=== PATIENT | female | born 1985 | race Caucasian/White ===

== ENCOUNTER 2017-12-04 15:30 | Emergency (ER) | payer OTHER ==
[~2017-12-04] VITALS: Ht 172.7 cm; Wt 62.6 kg
[~2017-12-04 15:30] MED LIST: ATIVAN0.5 MG PO; CEPHALEXIN500 M1 PO; CITALOPRAM HYDR20 MG PO; KENALOG0.1% TP; LYRICA100 M1 PO; MEDROL DOSEPAK4 MG PO; PREDNICOT20 MG PO; SILVADENE1% TP; VISTARIL25 M1 PO; ZOVIRAX800 MG PO
[2017-12-04] MEDS ORDERED: Zofran4 MG SL (18:02)
== END 2017-12-04 17:57 | disposition home or self-care (01) ==
LOC: ED 15:30
DX: A08.4 Viral intestinal infection, unspecified (principal); Z79.899 Other long term (current) drug therapy; Z87.01 Personal history of pneumonia (recurrent)

== ENCOUNTER 2018-08-26 20:08 | Emergency (ER) | payer OTHER ==
[~2018-08-26] VITALS: Ht 170.1 cm; Wt 64.4 kg
[~2018-08-26 20:08] MED LIST changes: +DIFLUCAN150 MG PO; +ZITHROMAX250 MG PO; +Zofran4 MG SL
[2018-08-26] MEDS ORDERED: TOPIRAMATE50 M2 PO (20:25)
[2018-08-26] MEDS ORDERED: MIRALAX POWDER17 G1 PO (21:36)
== END 2018-08-26 22:11 | disposition home or self-care (01) ==
LOC: ED 20:08
DX: K59.00 Constipation, unspecified (principal); F17.200 Nicotine dependence, unspecified, uncomplicated; Z90.49 Acquired absence of other specified parts of digestive tract; Z79.899 Other long term (current) drug therapy

== ENCOUNTER 2019-02-04 19:00 | Emergency (ER) | payer SELFPAY ==
[~2019-02-04] VITALS: Ht 170.1 cm; Wt 64.0 kg
[~2019-02-04 19:00] MED LIST changes: +CITALOPRAM10 MG PO; +MIRALAX POWDER17 G1 PO; +TOPIRAMATE50 M2 PO
[2019-02-04] MEDS ORDERED: LIDEX 0.05% CRE15 GM T (19:09)
== END 2019-02-04 19:27 | disposition home or self-care (01) ==
LOC: ED 19:00
DX: L30.9 Dermatitis, unspecified (principal); Z79.899 Other long term (current) drug therapy

== ENCOUNTER 2019-08-14 11:41 | Emergency (ER) | payer OTHER ==
[~2019-08-14] VITALS: Ht 172.7 cm; Wt 67.1 kg
[~2019-08-14 11:41] MED LIST changes: +LIDEX 0.05% CRE15 GM T
[2019-08-14] MEDS ORDERED: ACYCLOVIR800 MG PO (12:20)
[2019-08-14] MEDS ORDERED: NEURONTIN100 MG PO (12:21)
== END 2019-08-14 12:21 | disposition home or self-care (01) ==
LOC: ED 11:41
DX: B02.9 Zoster without complications (principal); F17.200 Nicotine dependence, unspecified, uncomplicated; Z79.899 Other long term (current) drug therapy

== ENCOUNTER 2019-10-14 08:48 | Emergency (ER) | payer OTHER ==
[~2019-10-14] VITALS: Ht 172.7 cm; Wt 63.5 kg
[~2019-10-14 08:48] MED LIST changes: +ACYCLOVIR800 MG PO; +NEURONTIN100 MG PO
[2019-10-14] MEDS ORDERED: DOXYCYCLINE100 M3 PO (10:35)
[2019-10-14] MEDS ORDERED: TESSALON PERLE100 M1 PO (10:35)
== END 2019-10-14 10:36 | disposition home or self-care (01) ==
LOC: ED 08:48
DX: J18.9 Pneumonia, unspecified organism (principal); F17.200 Nicotine dependence, unspecified, uncomplicated; Z79.899 Other long term (current) drug therapy

== ENCOUNTER 2020-02-17 21:02 | Emergency (ER) | payer OTHER ==
[~2020-02-17 21:02] MED LIST changes: +DOXYCYCLINE100 M3 PO; +TESSALON PERLE100 M1 PO
[2020-02-17 21:39] LABS: BASO # 0.1 10*3/uL (0.0-0.1); BASO % 0.5 % (0.0-1.0); EOS # 0.1 10*3/uL (0.0-0.4); EOS % 0.4 % (1.0-4.0); HEMATOCRIT 41.6 % (37.0-47.0); LYMPH # 3.1 10*3/uL (1.3-4.4); LYMPH % 26.3 % (27.0-41.0); MEAN CELL VOLUME 87.9 fl (81.0-99.0); MEAN CORPUSCULAR HGB 27.9 pg (27.0-31.0); MEAN CORPUSCULAR HGB CONC 31.7 g/dl (33.0-37.0); MEAN PLATELET VOLUME 10.2 fl (9.6-12.3); MONO # 0.7 10*3/uL (0.1-1.0); MONO % 6.2 % (3.0-9.0); NEUT # 7.7 10*3/uL (2.3-7.9); NEUT % 66.1 % (47.0-73.0); PLATELET COUNT AUTOMATED 252 10*3/uL (130-400); RED BLOOD COUNT 4.73 10*6/uL (4.10-5.10); RED CELL DISTRI WIDTH 13.2 % (0-14.5); WHITE BLOOD COUNT 11.7 10*3/uL (4.8-10.8)
[2020-02-17 21:57] LABS: ALBUMIN 3.7 gm/dl (3.1-4.5); ALKALINE PHOSPHATASE 63 U/L (45-117); BUN 7 mg/dl (7-24); CHLORIDE 108 mmol/L (98-107); CREATININE 1.01 mg/dL (0.55-1.02); POTASSIUM 3.3 mmol/L (3.5-5.1); SGOT/AST 12 IU/L (3-35); SGPT/ALT 16 U/L (12-78); SODIUM 139 mmol/L (136-145); TOTAL PROTEIN 8.1 gm/dL (6.4-8.2)
[2020-02-17] MEDS ORDERED: Motrin,Rufen800 MG PO (23:23)
== END 2020-02-17 23:35 | disposition home or self-care (01) ==
LOC: ED 21:02
PROVIDERS: Physician Assistant
DX: L55.1 Sunburn of second degree (principal); R60.0 Localized edema; M79.604 Pain in right leg; M79.605 Pain in left leg; Z79.899 Other long term (current) drug therapy

== ENCOUNTER 2021-02-03 14:26 | Emergency (ER) | payer OTHER ==
[~2021-02-03] VITALS: Ht 170.1 cm; Wt 67.1 kg
[~2021-02-03 14:26] MED LIST changes: +Motrin,Rufen800 MG PO
[2021-02-03 15:06] LABS: BASO % 0.7 % (0.0-1.0); EOS # 0.3 10*3/uL (0.0-0.4); EOS % 4.2 % (1.0-4.0); HEMATOCRIT 40.7 % (37.0-47.0); LYMPH # 1.8 10*3/uL (1.3-4.4); MEAN CORPUSCULAR HGB 27.3 pg (27.0-31.0); MEAN CORPUSCULAR HGB CONC 31.7 g/dl (33.0-37.0); MEAN PLATELET VOLUME 10.6 fl (9.6-12.3); MONO # 0.5 10*3/uL (0.1-1.0); MONO % 7.7 % (3.0-9.0); NEUT # 3.4 10*3/uL (2.3-7.9); NEUT % 57.2 % (47.0-73.0); PLATELET COUNT AUTOMATED 238 10*3/uL (130-400); RED BLOOD COUNT 4.73 10*6/uL (4.10-5.10); RED CELL DISTRI WIDTH 13.5 % (0-14.5)
[2021-02-03 15:23] LABS: ALBUMIN 3.4 gm/dl (3.1-4.5); ALKALINE PHOSPHATASE 74 U/L (45-117); BETA-HCG, QUANT < 1.0 mIU/mL (1-3); BUN 7 mg/dl (7-24); CHLORIDE 110 mmol/L (98-107); CREATININE 0.91 mg/dL (0.55-1.02); LIPASE 120 U/L (73-393); POTASSIUM 3.8 mmol/L (3.5-5.1); SGOT/AST 19 IU/L (3-35); SGPT/ALT 19 U/L (12-78); SODIUM 139 mmol/L (136-145); TOTAL PROTEIN 7.6 gm/dL (6.4-8.2)
== END 2021-02-03 18:05 | disposition home or self-care (01) ==
LOC: ED 14:26
PROVIDERS: Emergency Medicine
DX: E04.1 Nontoxic single thyroid nodule (principal); Z79.899 Other long term (current) drug therapy

== ENCOUNTER → 2022-02-10 | Outpatient (CLI) | payer OTHER | END | disposition home or self-care (01) | LOC: US 09:26 | PROVIDERS: ATTEND Otolaryngology | DX: E04.2 Nontoxic multinodular goiter (principal) ==

== ENCOUNTER → 2022-03-03 | Outpatient (CLI) | payer OTHER ==
[2022-03-03 11:53] LABS: BASO % 0.7 % (0.0-1.0); EOS # 0.5 10*3/uL (0.0-0.4); EOS % 7.6 % (1.0-4.0); HEMATOCRIT 43.9 % (37.0-47.0); LYMPH # 1.9 10*3/uL (1.3-4.4); LYMPH % 30.5 % (27.0-41.0); MEAN CELL VOLUME 86.1 fl (81.0-99.0); MEAN CORPUSCULAR HGB 27.8 pg (27.0-31.0); MEAN CORPUSCULAR HGB CONC 32.3 g/dl (33.0-37.0); MEAN PLATELET VOLUME 11.1 fl (9.6-12.3); MONO # 0.5 10*3/uL (0.1-1.0); MONO % 8.3 % (3.0-9.0); NEUT # 3.2 10*3/uL (2.3-7.9); NEUT % 52.6 % (47.0-73.0); PLATELET COUNT AUTOMATED 218 10*3/uL (130-400); RED CELL DISTRI WIDTH 13.8 % (0-14.5); RETICULOCYTE % 1.61 % (0.50-2.50); WHITE BLOOD COUNT 6.1 10*3/uL (4.8-10.8)
[2022-03-03 12:15] LABS: BILIRUBIN Negative (Negative); BLOOD Negative (Negative); CLARITY Cloudy (Clear); COLOR Yellow (Yellow); GLUCOSE Negative (Negative); KETONE Negative (Negative); LEUKO ESTERASE 1+ (Negative); NITRITE Negative (Negative); UROBILINOGEN 0.2 E.U./dl (0.0-1.0)
[2022-03-03 12:30] LABS: BUN 7 mg/dl (7-24); CHLORIDE 109 mmol/L (98-107); POTASSIUM 3.8 mmol/L (3.5-5.1); SODIUM 139 mmol/L (136-145)
[2022-03-03 12:42] LABS: ALKALINE PHOSPHATASE 71 U/L (45-117); CHOLESTEROL 166 mg/dL (<200); IRON 56 ug/dL (50-170); LDL CHOLESTEROL 90 mg/dL (9-159); SGOT/AST 19 IU/L (3-35); SGPT/ALT 13 U/L (12-78); T3 UPTAKE 33 % (31-39); THYROXINE (T4) TOTAL 8.4 ug/dl (4.8-13.9); TOTAL IRON BINDING CAPACITY 424 ug/dl (250-450); TOTAL PROTEIN 7.6 gm/dL (6.4-8.2); TRIGLYCERIDES 214 mg/dl (<150)
[2022-03-03 13:18] LABS: BACTERIA 2+; MUCOUS 1+
[2022-03-03 13:19] LABS: FERRITIN 4.2 ng/mL (10.0-291.0); VITAMIN D, 25-HYDROXY 17.1 ng/mL (30-100)
== END | disposition home or self-care (01) ==
LOC: LAB 11:15
PROVIDERS: ATTEND Family Medicine
DX: E78.5 Hyperlipidemia, unspecified (principal); E55.9 Vitamin D deficiency, unspecified; R79.89 Other specified abnormal findings of blood chemistry; R53.83 Other fatigue; R74.8 Abnormal levels of other serum enzymes

== ENCOUNTER → 2022-06-02 | Outpatient (CLI) | payer OTHER ==
[2022-06-02 12:53] LABS: BUN 7 mg/dl (7-24); CHLORIDE 108 mmol/L (98-107); POTASSIUM 4.1 mmol/L (3.5-5.1); SODIUM 139 mmol/L (136-145)
[2022-06-02 12:59] LABS: FREE T4 0.82 ng/dl (0.76-1.46); THYROID STIM HORMONE (HS) 0.344 uIU/ml (0.358-4.75)
[2022-06-03 04:06] LABS: THYROID PEROXIDASE (TPO) AB 11 IU/mL (0-34)
[2022-06-03 22:05] LABS: THYROGLOBULIN ANTIBODY <1.0 IU/mL (0.0-0.9)
== END | disposition home or self-care (01) ==
LOC: LAB 12:12
PROVIDERS: ATTEND Internal Medicine
DX: E04.1 Nontoxic single thyroid nodule (principal); R00.2 Palpitations; G43.909 Migraine, unspecified, not intractable, without status migrainosus; E55.9 Vitamin D deficiency, unspecified

== ENCOUNTER 2022-06-22 12:12 | Emergency (ER) | payer OTHER ==
[~2022-06-22] VITALS: Wt 77.6 kg
[2022-06-22] MEDS ORDERED: IBUPROFEN600 MG PO (13:01)
== END 2022-06-22 14:19 | disposition home or self-care (01) ==
LOC: ED 12:12
DX: S83.91XA Sprain of unspecified site of right knee, initial encounter (principal); Z91.041 Radiographic dye allergy status; Z79.899 Other long term (current) drug therapy; W18.43XA Slipping, tripping and stumbling without falling due to stepping from one level to another, initial encounter; Y93.01 Activity, walking, marching and hiking; Y92.89 Other specified places as the place of occurrence of the external cause; Y99.8 Other external cause status

== ENCOUNTER → 2023-11-02 | Outpatient (CLI) | payer OTHER ==
[~2023-11-02] MED LIST changes: +IBUPROFEN600 MG PO
== END | disposition home or self-care (01) ==
LOC: RAD 17:03
PROVIDERS: ATTEND Family Medicine
DX: M47.817 Spondylosis without myelopathy or radiculopathy, lumbosacral region (principal)

== ENCOUNTER → 2024-12-12 | Outpatient (CLI) | payer OTHER ==
[2024-12-12 11:13] LABS: HEMATOCRIT 41.2 % (37.0-47.0); MEAN CELL VOLUME 84.1 fl (81.0-99.0); MEAN CORPUSCULAR HGB 26.3 pg (27.0-31.0); MEAN CORPUSCULAR HGB CONC 31.3 g/dl (33.0-37.0); MEAN PLATELET VOLUME 10.2 fl (9.6-12.3); RED BLOOD COUNT 4.9 10*6/uL (4.10-5.10); RED CELL DISTRI WIDTH 14.1 % (0-14.5); WHITE BLOOD COUNT 5.2 10*3/uL (4.8-10.8)
[2024-12-12 12:05] LABS: VITAMIN D, 25-HYDROXY 21.7 ng/mL (30-100)
[2024-12-12 12:06] LABS: ALKALINE PHOSPHATASE 62 U/L (46-116); BUN 6 mg/dl (9-23); CHLORIDE 107 mmol/L (98-107); CHOLESTEROL 208 mg/dL (<200); CPK 113 U/L (34-171); FREE T4 1.16 ng/dl (0.89-1.76); LDL CHOLESTEROL 122 mg/dL (9-159); SGPT/ALT 12 U/L (5-49); TOTAL PROTEIN 7.5 gm/dL (6.0-8.0); TRIGLYCERIDES 209 mg/dl (<150)
[2024-12-13 05:06] LABS: HBsAG SCREEN Negative (Negative); HCV Ab Non Reactive (Non Reactive); HEP B CORE Ab, IgM Negative (Negative)
== END | disposition home or self-care (01) ==
LOC: LAB 10:52
PROVIDERS: ATTEND Family Medicine
DX: E55.9 Vitamin D deficiency, unspecified (principal); M54.50 Low back pain, unspecified; M79.669 Pain in unspecified lower leg; R53.83 Other fatigue; M79.7 Fibromyalgia

== ENCOUNTER → 2025-01-28 | Outpatient (CLI) | payer OTHER | END | disposition home or self-care (01) | LOC: US 12:41 | PROVIDERS: ATTEND Family Medicine | DX: E04.1 Nontoxic single thyroid nodule (principal) ==

== ENCOUNTER → 2025-02-26 | Outpatient (CLI) | payer OTHER | END | disposition home or self-care (01) | LOC: RAD 13:50 | PROVIDERS: ATTEND Family Medicine | DX: M25.511 Pain in right shoulder (principal) ==

== ENCOUNTER → 2025-03-03 | Outpatient (CLI) | payer OTHER | END | disposition home or self-care (01) | LOC: RAD 11:57 | PROVIDERS: ATTEND Family Medicine | DX: S16.1XXA Strain of muscle, fascia and tendon at neck level, initial encounter (principal); M47.812 Spondylosis without myelopathy or radiculopathy, cervical region; M48.02 Spinal stenosis, cervical region; M25.511 Pain in right shoulder; M54.2 Cervicalgia; X58.XXXA Exposure to other specified factors, initial encounter; Y93.89 Activity, other specified; Y92.89 Other specified places as the place of occurrence of the external cause; Y99.8 Other external cause status ==

== ENCOUNTER → 2025-05-20 | Outpatient (CLI) | payer OTHER ==
[2025-05-20 10:05] LABS: MEAN CELL VOLUME 83.9 fl (81.0-99.0); MEAN CORPUSCULAR HGB 26.7 pg (27.0-31.0); MEAN PLATELET VOLUME 11.3 fl (9.6-12.3); NUCLEATED RED BLOOD CELL 0.0 % (0.0-0.0); NUCLEATED RED BLOOD CELL 0.0 10*3/uL (0.0-0.0); PLATELET COUNT AUTOMATED 187.0 10*3/uL (130-400); RED CELL DISTRI WIDTH 13.6 % (0-14.5)
[2025-05-20 10:37] LABS: BUN 5 mg/dl (9-23); LDL CHOLESTEROL 77 mg/dL (9-159); SGPT/ALT 8 U/L (5-49)
[2025-05-20 10:42] LABS: VITAMIN D, 25-HYDROXY 31.3 ng/mL (30-100)
== END | disposition home or self-care (01) ==
LOC: LAB 09:38
PROVIDERS: ATTEND Family Medicine
DX: Z01.812 Encounter for preprocedural laboratory examination (principal); E55.9 Vitamin D deficiency, unspecified; R53.83 Other fatigue; M54.2 Cervicalgia

== ENCOUNTER → 2025-07-25 | Outpatient (CLI) | payer OTHER | END | disposition home or self-care (01) | LOC: US 14:22 | PROVIDERS: ATTEND Family Medicine | DX: E04.2 Nontoxic multinodular goiter (principal) ==